=== PATIENT | male | born 1995 | race Caucasian/White ===

== ENCOUNTER 2016-06-17 17:03 | Emergency (ER) | payer OTHER ==
[~2016-06-17] VITALS: Ht 180.3 cm; Wt 83.0 kg
[2016-06-17 18:56] LABS: HEP B SURF. AB < 3.1 mIU/mL (0.0-10.0)
[2016-06-17 19:07] LABS: HIV 1&2 ANTIBODY SCREEN Nonreactive (Nonreactive); HIV-1 p24 ANTIGEN Nonreactive (Nonreactive)
[2016-06-17 19:34] LABS: HEPATITIS C VIRUS ANTIBODY Nonreactive (Nonreactive)
[2016-06-17 20:20] VITALS: BP 114/68
== END 2016-06-17 20:23 | disposition home or self-care (01) ==
LOC: ED 19:12
DX: T40.1X1A Poisoning by heroin, accidental (unintentional), initial encounter (principal); Y92.89 Other specified places as the place of occurrence of the external cause; F17.200 Nicotine dependence, unspecified, uncomplicated
CPT/HCPCS: 36415; 86703; 86705; 86706; 86803; 87340; 87899; 99284; G0435